=== PATIENT | female | born 1980 | race Caucasian/White ===

== ENCOUNTER 2016-07-23 21:33 | Emergency (ER) | payer SELFPAY ==
[2016-07-23 22:01] VITALS: BP 122/64
--- NOTE | 2016-07-23 22:24 | UC ---
Syncope/New Syncope HPI - HPI Summary HPI Summary: The patient comes in today for: 1. Syncope: Onset: 2 hours ago. Palliative/provocative: Pressure to the left face can make the problem worse. Quality: Ache Region: Left face. Severity: 07/04 Time: Constant. Associated symptoms: Event: She was getting a tattoo on her left lower leg in the sitting position. She was doing this for about 10-15 minutes. She told the forensic artist that she wanted to stand up and stretch her leg. She stood up. She felt like she stood up too quickly, and started to talk a friend and then she was on the floor. It was witnessed. She had no incontinence of stool or urine. She did not have any nausea prior to going down. She does not have any now. She does not have a headache. She had no tonic-clonic movements. She was out for about 5 seconds. She felt fine afterwards. She was told that she had hit her head on the corner of a wooden chair before she hit the floor. AFter she woke up, she laid on her side for 10-15 minutes. She felt OK at that time except for her face. She sat up and felt dizzy "felt like she was hungry." She laid back down and drank OJ. She sat up a second time after laying down for 10-15 minutes and she felt. She fainted before on her prior tattoo before this. The patient talked to her neurologist friend who said that she had to get a CT scan of the head and for facial bones. No nausea, no headache other than her facial contusion. No numbness or weakness. No photophobia. No confusion or disorientation. But, she is feeling tired. * - History Of Current Complaint Chief Complaint: UCDizziness Stated Complaint: SYNCOPE FELL ON FACE Time Seen by Provider: 07/23/16 22:12 Hx Obtained From: Patient, Family/Chief Chemist Hx Last Menstrual Period: control - Allergies/Home Medications Allergies/Adverse Reactions: Allergies Allergy/AdvReac Type Severity Reaction Status Date / Time Azithromycin [From Zithromax] Allergy Intermediate Hives Verified 01/16/15 19:24 Penicillins Allergy Intermediate Hives Verified 01/16/15 19:24 Adhesive Tape Allergy Hives Verified 07/23/16 22:02 Latex Allergy Hives Verified 07/23/16 22:02 Home Medications: Home Medications Ascorbic Acid [Vitamin C] 500 mg PO 07/23/16 [History] B-Complex Vitamins [Vitamin B Complex] 1 tab PO 07/23/16 [History] Cholecalciferol [Vitamin D] 1,000 unit PO 07/23/16 [History] Levonorgestrel-Ethinyl Estradi [Seasonique] 1 tab PO 07/23/16 [History] PMH/Surg Hx/FS Hx/Imm Hx Previously Healthy: No - Family planning/BCP Endocrine History Of: Denies: Diabetes, Thyroid Disease, Hyperthyroidism, Hypothyroidism, Dyslipidemia Cardiovascular History Of: Denies: Cardiac Disorders, Hypertension, Pacemaker/ICD, Myocardial Infarction , Congestive Heart Failure, Atrial Fibrillation, Deep Vein Thrombosis, Bleeding Disorders Respiratory History Of: Denies: COPD, Asthma, Bronchitis, Pneumonia, Pulmonary Embolism GI/ History Of: Reports: Gastroesophageal Reflux - No medications for it. Denies: Ulcer, Gastrointestinal Bleed, Gall Bladder Disease, Kidney Stones, Diverticulitis, Renal Disease, Urosepsis Neurological History Of: Denies: TIA, CVA, Dementia, Seizures, Migraine Psychological History Of: Reports: Anxiety, Depression - No medications for these. Denies: Bipolar Disorder, Schizophrenia, Post Traumatic Stress Disorder Cancer History Of: Denies: Lung Cancer, Colorectal Cancer, Breast Cancer, Prostate Cancer, Cervical Cancer Other History Of: Negative For: HIV, Hepatitis B, Hepatitis C, Anticoagulant Therapy - Surgical History Surgical History: Yes Surgery Procedure, Year, and Place: 2004 AND 2007 , 2010 [facility] - Family History Known Family History: Positive: Cardiac Disease, Hypertension - Social History Occupation: Employed Full-time Alcohol Use: Occasionally Substance Use Type: None Smoking Status (MU): Heavy Every Day Tobacco Smoker Household Exposure Type: Cigarettes Review of Systems Constitutional: Negative Skin: Negative Eyes: Negative ENT: Negative Respiratory: Negative Cardiovascular: Negative Gastrointestinal: Negative Genitourinary: Negative All Other Systems Reviewed And Are Negative: Yes Physical Exam Triage Information Reviewed: Yes Appearance: Well-Appearing, No Pain Distress - She is holding a cold pack on her left cheek area., Well-Nourished Vital Signs: Initial Vital Signs Temp 98.1 F 07/23/16 21:53 Pulse 85 07/23/16 21:53 Resp 18 07/23/16 21:53 BP 122/64 07/23/16 21:53 Pulse Ox 100 07/23/16 21:53 Eyes: Positive: Conjunctiva Clear. Negative: Discharge ENT: Positive: Hearing grossly normal. Negative: Pharyngeal erythema, TM bulging, TM dull, TM red, Tonsillar swelling, Tonsillar exudate Dental: Negative: Gross Decay/Caries @, Dental Fracture @ Neck: Positive: Supple, Nontender, No Lymphadenopathy. Negative: Nuchal Rigidity Respiratory: Positive: Lungs clear, No respiratory distress, No accessory muscle use. Negative: Crackles, Wheezing Cardiovascular: Positive: RRR, No Murmur Abdomen Description: Positive: Nontender, No Organomegaly, Soft. Negative: Distended, Guarding Musculoskeletal: Positive: Strength Intact, ROM Intact, Edema @ - She had edema of her left cheek. There is ecchymosis of around the eye and cheek. Neurological: Positive: Alert, Muscle Tone Normal Psychological: Positive: Normal Response To Family, Age Appropriate Behavior, Consolable Skin: Positive: Other - Swelling and tenderness to the left cheek area.. Negative: rashes, breakdown Diagnostics - Radiology No standard instances Xray Interpretation: No Acute Changes Radiology Interpretation Completed By: Radiologist Syncope Course/Dx - Differential Dx/Diagnosis Provider Diagnoses: Facial trauma-contusion. Vaso-vagal syncope secondary to pain from tattooing. Discharge - Discharge Plan Condition: Stable Disposition: HOME Patient Education Materials: RICE Therapy (ED), Head Injury (ED) Referrals: Adiel Blood MD [Primary Care Provider] - 1 Week (Please see your primary care provider early this coming week to see how well you are doing. If you have any worsening symptoms, please be seen in the ER.) Additional Instructions: Use [id number] medicine as needed for pain.
[2016-07-23] MEDS ORDERED: Naproxen TAB* 250 MG PO ONE (22:34)
--- NOTE | 2016-07-23 23:04 | RAD ---
Indication: LEFT facial swelling post fall. Unable to remove nose ring. Comparison: None. Technique: 5 view facial bone series. Report: The orbital margins and zygomatic arches appear intact. The nasal bones appear intact. No facial fracture identified. The paranasal sinuses are normally aerated. No gross soft tissue contour abnormality evident. IMPRESSION: No radiographic evidence for maxillofacial fracture.
== END 2016-07-23 23:21 | disposition home or self-care (01) ==
LOC: UCEAST 21:33
DX: S00.83XA Contusion of other part of head, initial encounter (principal); W18.00XA Striking against unspecified object with subsequent fall, initial encounter; Y93.9 Activity, unspecified; Y92.9 Unspecified place or not applicable; R55 Syncope and collapse; K21.9 Gastro-esophageal reflux disease without esophagitis; F41.8 Other specified anxiety disorders; Z88.0 Allergy status to penicillin; Z77.22 Contact with and (suspected) exposure to environmental tobacco smoke (acute) (chronic)
CPT/HCPCS: 70150; 99212; A9270-GY; G0463

== ENCOUNTER 2016-10-28 12:20 | Emergency (ER) | payer SELFPAY ==
[2016-10-28] MEDS ORDERED: Ibuprofen TAB* 600 MG PO ONE (14:07)
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
[2016-10-28 16:00] VITALS: BP 143/79
== END 2016-10-28 15:59 | disposition home or self-care (01) ==
LOC: ED 12:20
DX: S20.319A Abrasion of unspecified front wall of thorax, initial encounter (principal); V44.5XXA Car driver injured in collision with heavy transport vehicle or bus in traffic accident, initial encounter; Y93.89 Activity, other specified; Y92.89 Other specified places as the place of occurrence of the external cause; F17.210 Nicotine dependence, cigarettes, uncomplicated
CPT/HCPCS: 72125; 72128; 99282; A9270-GY

== ENCOUNTER 2017-07-07 08:58 | Day surgery (SDC) | payer OTHER ==
[~2017-07-07 08:58] MED LIST: Buffered Lidocaine 0.9% SYRIN* 5 ML/SYR SYRINGE INTRADERM ONE; Dexamethasone IV* 4 MG/ML 1 ML (4 MG) IV SLOW PU ONE; Lidocaine 2% PF * 5 ML VIAL ONE; Midazolam* 1 MG/ML 2 ML VIAL (2 MG) ONE; Propofol* 10 MG/ML 20 ML BTL IV PUSH ONE; Rocuronium* 10 MG/ML VIAL ONE; Sodium Citrate/Citric Acid* 15 ML UDC PO ONE; fentaNYL* 50 MCG/ML 2 ML VIAL (100 MCG VIAL) ONE
[2017-07-07] MEDS ORDERED: Buffered Lidocaine 0.9% SYRIN* 5 ML/SYR SYRINGE ONE (09:05)
[2017-07-07] MEDS ORDERED: Sodium Citrate/Citric Acid* 15 ML UDC ONE (09:05)
[2017-07-07] MEDS ORDERED: Dexamethasone IV* 4 MG/ML 1 ML (4 MG) ONE (09:05)
[2017-07-07 09:30] LABS: Hematocrit 44 % (35-47); Hemoglobin 15.5 g/dl (12.0-16.0); Mean Corpuscular HGB Conc 35 g/dl (31-36); Mean Corpuscular Hemoglobin 33 pg (27-31); Mean Corpuscular Volume 93 fL (80-97); Mean Platelet Volume 8.3 um3 (7.4-10.4); Platelet Count 199 10^3/ul (150-450); Red Blood Count 4.76 10^6/ul (4.0-5.4); Red Cell Distribution Width 12 % (10.5-15); White Blood Count 6.8 10^3/ul (3.5-10.8)
[2017-07-07] MEDS ORDERED: Bupivacaine 0.25% SDV* 30 ML ONE (09:59)
[2017-07-07] MEDS ORDERED: Levalbuterol 0.63MG/3ML NEB* UNIT OF USE INH ONE (10:02)
[2017-07-07] MEDS ORDERED: HYDROmorphone INJ* 1 MG/ML CARPUJECT SYRINGE IV PRN (10:08)
[2017-07-07] MEDS ORDERED: Ondansetron INJ* 2 MG/ML VIAL IV PRN (10:08)
[2017-07-07] MEDS ORDERED: fentaNYL* 50 MCG/ML 2 ML VIAL (100 MCG VIAL) IV PRN (10:08)
[2017-07-07] MEDS ORDERED: oxyCODONE/Acetamin 5/325 MG* TAB PO PRN (10:08)
[2017-07-07] MEDS ORDERED: Naloxone* 0.4 MG/ML 1 ML VIAL IV PRN (10:08)
[2017-07-07] MEDS ORDERED: fentaNYL* 50 MCG/ML 2 ML VIAL (100 MCG VIAL) ONE ×2 (10:27→11:35)
[2017-07-07] MEDS ORDERED: Ketorolac INJ* 30 MG/ML 1 ML VIAL ONE (10:34)
[2017-07-07] MEDS ORDERED: oxyCODONE/Acetamin 5/325 MG* TAB ONE (11:50)
[2017-07-07 12:52] VITALS: BP 108/63
--- NOTE | 2017-07-09 02:05 | OP ---
DATE OF OPERATION: 07/07/17 [facility] DATE OF : 84 SURGEON: Mimi Flowers MD ANESTHESIOLOGIST: Dr. Morelos ANESTHESIA: General endotracheal. PRE-OP DIAGNOSIS: Satisfied parity. POST-OP DIAGNOSIS: Satisfied parity. OPERATIVE PROCEDURE: Laparoscopic bilateral tubal ligation with Filshie clips. ESTIMATED BLOOD LOSS: Minimal. URINE OUTPUT: 100 cc IV FLUIDS: 700 cc lactated Ringer's. INDICATION: This patient is a 37-year-old 2, para 2 who presented to the office desiring permanent sterilization. She was extensively counseled regarding her options for sterilization and long-term reversible contraception and she desired to have a laparoscopic procedure. She was extensively counseled and consent was signed. FINDINGS: Normal appearing uterus, fallopian tubes, and ovaries. COMPLICATIONS: None. DESCRIPTION OF PROCEDURE: The risks, benefits, and alternatives were described to the patient, and informed consent was obtained. The patient was taken to the operating room with IV running where general anesthesia was induced and found to be adequate. The patient was prepped and draped in normal-sterile fashion in the low lithotomy position and Arie stirrups. A time-out was performed. The bladder was emptied. A bivalve speculum was placed in the vagina and a Hulka tenaculum was placed through the cervix into the uterus. The speculum was then removed. Attention was then turned to the abdomen. 0.25% Marcaine was then injected into the skin of the umbilicus as well as 2-cm above the pubic symphysis. A 5 mm skin incision was made with a scalpel in the umbilicus. An Ethicon Xcel blade with trocar was then inserted through the incision and into the peritoneal cavity without difficulty. The skin was elevated using penetrating towel clamps. Once the trocar was in the abdominal cavity, the abdomen was insufflated with carbon dioxide gas to a maximum pressure of 15 mmHg. Using the camera, the area below the trocar placement was carefully inspected and there was no evidence of trauma or bleeding. The patient was placed in Trendelenburg position. A second incision about 8 mm in length was placed 2 cm above the pubic symphysis in a transverse fashion. An 8- mm blunt trocar was also placed through this incision and into the abdominal cavity without difficulty. Using the Hulka tenaculum for manipulation, the uterus was elevated and well visualized. The structures appeared normal. Filshie clips were prepared. A Filshie clip was then placed on the patient's right fallopian tube in the mid isthmic portion without difficulty. The same was then performed on the patient's left side, again without difficulty and with excellent hemostasis. The case was then completed. The trocars were removed from the abdomen and the gas was allowed to escape. The skin was reapproximated using 4-0 Monocryl and a subcuticular stitch, and the incisions were then overlaid with Dermabond skin adhesive. The tenaculum was then removed from the cervix as well, and there was only light bleeding from the vagina at that time. The patient was returned to the supine position and allowed to awaken. The patient tolerated the procedure well. Sponge, lap, and needle counts were correct x2. [id number]/[facility] #: [id number] MTDD
== END 2017-07-07 13:11 | disposition home or self-care (01) ==
LOC: OR 08:58
PROVIDERS: ATTEND Obstetrics & Gynecology
DX: Z30.2 Encounter for sterilization (principal); Z68.31 Body mass index [BMI] 31.0-31.9, adult; R00.2 Palpitations; Z72.0 Tobacco use; M19.90 Unspecified osteoarthritis, unspecified site; F41.8 Other specified anxiety disorders; K21.9 Gastro-esophageal reflux disease without esophagitis
CPT/HCPCS: 36415; 81025; 85027; 86850; 86900; 86901; A9270-GY; C1776; J1100; J1885; J2250; J2704; J3010

== ENCOUNTER 2017-09-02 15:34 | Emergency (ER) | payer OTHER ==
--- OUTSIDE RECORDS SUMMARY | 2017-09-02 16:22 | XMS REPORT ---
:1980 External Reference #:[id number] Author Organization [facility] Address [address] [place] [address] Phone [phone] Care Team Providers Name Role Phone Adiel Blood MD Care Team Information Radiology Special Procedure Tech Unavailable Adiel Blood MD Primary Care Physician Unavailable Payers Type Date Identification Numbers Payment Provider Subscriber Medicaid Effective: Policy Number: [id number] [facility] Dominique M 2004 Maxim PayID: [id number] [address] [address] [place] [address] Problems Date Description Provider Status Onset: 03/08/2017 Major depressive disorder, single Adiel Blood M.D. Active episode, unspecified Onset: 03/08/2017 Anxiety state Adiel Blood M.D. Active Onset: 03/13/2012 Eruption Ronnie Khan M.D. Active Onset: 11/17/2011 Acute cystitis Adiel Blood M.D. Active Onset: 11/20/2009 Allergic rhinitis Ronnie Khan M.D. Active Family History Date Family Member(s) Problem(s) Comments Father TIA Mother Unremarkable Number of Children 2 First Son Unremarkable First Daughter Asthma First Daughter Depression Number of Siblings Siblings: 5 First Brother due to Heart Disease () - congenital Second Brother Unremarkable Third Brother Unremarkable First Sister Unremarkable Second Sister Unremarkable Paternal Grandfather due to Stroke () - 80's Paternal Grandmother due to Aneurysm () - brain 50 yo Maternal Grandfather Chronic Obstructive Pulmonary Disease (COPD) Maternal Grandfather Heart Disease Maternal Grandmother Hypertension Maternal Grandmother Hypercholesterolemia Maternal Grandmother Diabetes Mellitus, II Social History Type Date Description Comments Marital Status 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 No menses on Payton Allergies, Adverse Reactions, Alerts Date Description Reaction Status Severity Comments 03/26/2003 Zithromax active 09/05/2006 Penicillin active 07/25/2012 Latex active 02/26/2015 Adhesives active Medications Medication Date Status Form Strength Qnty SIG Indications Ordering Provider Tizanidine HCL 08/29/ Active Capsules 4mg 90caps 1 by Vance Vaz [facility] [place] mouth Mir, three [employer] times a day as needed spasm Meloxicam 08/29/ Active Tablets 15mg 90tabs 1 by Vance Vaz [facility] mouth Mir, every [employer] day Acetaminophen 08/29/ Active Tablets 500mg 120tab 1-2 by Vance Vaz [facility] s mouth Mir, every 12 [employer] hours as needed pain Paxil 03/08/ Active Tablets 20mg 30tabs 1 by Adiel Hampton 2017 mouth Breiman, every M.D. day Pantoprazole 10/31/ Active Tablets DR 40mg 30tabs 1 by Baljeet0 Adiel Hampton Sodium 2016 mouth Breiman, every M.D. day K21.9 Cetirizine HCL 06/15/2016 Active Tablets 10mg 30tabs 1 by mouth J30.89 Tiffany every day Kane, prn [employer] Fluticasone 06/15/2016 Active Suspension 50mcg/ 16units instill 2 J30.89 Tiffany Propionate Act sprays into Kane, each nostril [employer] once daily as needed Multi-Vitamin Active Tablets 1 po qd Unknown Vitamin D Active Tablets 1000Un 1 po qd Unknown it Ibuprofen Active Tablets 600mg 1 tab by Unknown mouth every 8 hours as needed pain. take with food Bactrim DS 05/08/2017 - Hx Tablets 800-16 14tabs 1 by mouth Adiel Hampton 08/29/2017 0mg twice a day Jared Blood Paxil 01/04/2017 - Hx Tablets 10mg 30tabs 1 by mouth Adiel Hampton 03/08/2017 every day Jared Blood Note For Work 11/08/2016 - Hx Can Return Adiel Hampton 01/04/2017 To Work No Caitie, Limitations M.D. 11/14/16 Work Excuse 11/08/2016 - Hx can return Adiel Hampton 01/04/2017 to work no Caitie limitations M.D. 11/14/16 Tramadol HCL 10/31/2016 - Hx Tablets 50mg 45tabs 1 by mouth Adiel Hampton 01/04/2017 every 6 Breiman, hours as M.D. needed Work Excuse 10/31/2016 - Hx dominique Adiel Hampton 11/07/2016 was in [facility]], cannot work M.D. at least this week and possibly a second week will reassess Pantoprazole 03/11/2015 - Hx Tablets DR 40mg 30tabs 1 by mouth K30 Adiel Hampton Sodium 10/31/2016 every day Jared Blood K21.9 Omeprazole 11/28/2013 - Hx Capsules DR 40mg 30caps 1 po qd 536.8 Tiffany 02/26/2015 LI Middleton Ciprofloxacin HCL 09/19/2013 - Hx Tablets 500mg 10tabs 1 po bid x 5 599.0 Candi 09/24/2013 days KRISTINA Perez Phenazopyridine 09/19/2013 - Hx Tablets 100mg 6tabs 1 po tid x 2 599.0 Candi HCL 09/21/2013 days KRISTINA Perez Fluconazole 09/19/2013 - Hx Tablets 150mg 1tabs 1 po x 1 599.0 Candi 09/20/2013 KRISTINA Perez Physical Therapy 01/05/2013 - Hx evaluate and 719.45 Tiffany 09/19/2013 treat low Kane, back and [employer] right hip pain Bupropion HCL XL 09/24/2012 - Hx Tablets ER 300mg 30tabs Take One F41.1 Tiffany 06/15/2016 24HR Tablet By Kane Mouth Every [employer] Day Chantix Starting 07/25/2012 - Hx Tablets 0.5mg 1pack use as 305.1 Candi Month Khris 09/19/2013 X 11 directed Brown, 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 & 1 mg X 42 Fluocinolone 07/14/2012 - Hx Cream 0.025 15gm apply to 782.9 Татьяна Acetonide 07/25/2012 % affected Mir, areas right [employer] arm daily x 2 weeks Bupropion HCL XL 03/28/2012 - Hx Tablets ER 150mg 30tabs 1 po qd 311 Tiffany 09/24/2012 24HR Kane, [employer] Physical Therapy 03/28/2012 - Hx evaluate and 719.45 Tiffany 07/14/2012 treat low Kane, back and [employer] right hip pain Pantoprazole 03/28/2012 - Hx Tablets DR 40mg 30tabs Take One 536.8 Tiffany Sodium 11/28/2013 Tablet By Kane, Mouth Every [employer] Day Ketoconazole 03/13/2012 - Hx Cream 2% 30gm apply to 782.1 Ronnie Muñiz 03/28/2012 rash qd to Erin, bid Jared Work Note 03/13/2012 - Hx no work 782.1 Ronnie Muñiz 03/28/201203/14 due Erin, to illness MWander Bactrim DS 01/12/2012 - Hx Tablets 800-1 20tabs 1 po bid 599.0 Fran Bryan 01/22/2012 60mg Jared Nguyen Cipro 11/17/2011 - Hx Tablets 250mg 10tabs 1 po bid Adiel Hampton 01/12/2012 Jared Blood Pyridium 11/17/2011 - Hx Tablets 200mg 10tabs use bid Adiel Hampton 01/12/2012 for pain Jared Blood Pyridium 09/12/2011 - Hx Tablets 100mg 15tabs 1-2 po tid Suzanna 09/16/2011 prn dysuria Eros Joyner Cortisporin Otic 08/31/2011 - Hx Solution 1units 2gtts tid Adiel Hampton 09/12/2011 x 4 days Jared Blood Payton 04/06/2011 - Hx Tablets 3-0.0 3packs take one Tiffany 06/15/2016 2mg tablet by Kane, mouth daily. [employer] Protonix 04/06/2011 - Hx Tablets DR 40mg 30tabs 1 po qd 536.8 Tiffany 08/09/2011 Kane, [employer] Nicoderm CQ 04/06/2011 - Hx Patches 24HR 21mg/ 14units apply one 305.1 [facility] 09/12/2011 24HR patch daily Kane, for up to 4 [employer] weeks Nicoderm CQ 04/06/2011 - Hx Patches 24HR 14mg/ 14units apply one q 305.1 [facility] 09/12/2011 24HR am, may use Kane, up to 6 [employer] weeks Nicoderm CQ 04/06/2011 - Hx Patches 24HR 7mg/2 14units apply 1 305.1 [facility] 09/12/2011 4HR daily for up Kane, to 4 weeks [employer] Citalopram 02/10/2011 - Hx Tablets 20mg 30tabs 1 po qd [facility] Hydrobromide 08/09/2011 Kane, [employer] Omeprazole 02/10/2011 - Hx Capsules DR 40mg 30caps 1 po qd [facility] 04/06/2011 Kane, [employer] Fexofenadine HCL 07/26/2010 - Hx Tablets 180mg 7tabs 1 po qd 477.8 Fran A. 08/02/2010 Jared Nguyen Ranitidine HCL 07/26/2010 - Hx Tablets 150mg 7tabs 1 po qd 477.8 Fran A. 08/02/2010 Jared Nguyen Prednisone 07/26/2010 - Hx Tablets 10mg 19tabs 4 po x 2 477.8 Fran A. 08/02/2010 days, then 3 Darlow, po x 2 days, M.D. then 2 po x 2 days,then 1 po x 1 day Chantix 06/23/2010 - Hx Tablets 0.5mg 1tabs 1 starter Tiffany 04/06/2011 X 11 pack for a Kane, & month,then [employer] 1 mg refill X maintenance packs Bactrim DS 11/20/2009 - Hx Tablets 800-1 10tabs 1 po bid x 5 Suzanna 11/07/2011 60mg days Eros Joyner Veramyst 11/20/2009 - Hx Suspension 27.5m Sample 2 sprays Ronnie TShay 09/12/2011 cg/Sp each nostril Midura, ray qd. Jared Nexium 07/31/2009 - Hx Capsules DR 40mg 30caps 1 po qd 536.8 Tiffany 02/10/2011 Kane, [employer] Lexapro 07/31/2009 - Hx Tablets 10mg 30tabs Take 1 F41.1 Tiffany 06/15/2016 Tablet By Kane, Mouth Once [employer] Daily Return To Work 04/13/2004 - Hx dominique was Tiffany 12/09/2005 seen by me Middleton, today for [employer] low back pain and may not return to work until further notice Clarinex 11/20/2003 - Hx 5mg 30units 1 qd Vladimir J. 12/09/2005 Jared Tanner Nasacort Aq 11/20/2003 - Hx 1units 2 sprays q Vladimir J. 12/09/2005 nostril qd Jared Tanner Multivitamin 11/10/2003 - Hx 100unit 1 qd Vladimir J. 12/09/2005 s Jared Tanner Lexapro 11/10/2003 - Hx 20mg 30units 1 po qd Vladimir J. 12/09/2005 Jared Tanner Differin Cream 11/10/2003 - Hx 15gm Appy QHS Vladimir J. 12/09/2005 Jared Tanner Return To Work 10/31/2003 - Hx dominique may Tiffany 12/09/2005 return to [place] work without [employer] restriction as of today. Trazodone 10/15/2003 - Hx 50mg 20units 1 po qhs prn Vladimir J. 12/09/2005 Jared Tanner Lexapro 10/13/2003 - Hx 10mg 30units 1 po qd Vladimir J. 11/10/2003 Jared Tanner Cleocin T 06/18/2003 - Hx Cream 1% 1Large Vladimir J. 12/09/2005 Jared Tanner Minocin 06/18/2003 - Hx 100mg 60units 1 bid for 2 Vladimir J. 12/09/2005 wks then 1 mariusz Tanner M.D. Cryselle 28 Day 03/26/2003 - Hx 1 PO qd Family 06/18/2003 [facility] Entex-LA (Without 03/26/2003 - Hx 20units 1 PO bid prn Tiffany Ppa) 06/18/2003 LI Middleton Vitamin B-12 - Hx Tablets 500mc 1 po qd Unknown 07/26/[address] Kim Wort - Hx Capsules 300mg 2 cap bid Unknown 07/31/2009 Paragard - Hx IUD T380a Unknown Intrauterine 04/06/2011 Copper Iron - Hx Tablets 325(6 60tabs 1 po bid Unknown 03/28/2012 5Fe) mg Vitamin B 12 - Hx Lozenges 250mc 2 po qd Unknown 03/28/2012 g Prilosec OTC - Hx Tablets DR 20mg 30tabs 1 po qd Unknown 03/28/2012 Seasonique - Hx Tablets 0.15- take per Unknown 01/04/2017 0.03& packet amp;0 directions .01mg Percocet - Hx Tablets 5-325 1-2 tabs by Unknown 10/31/2016 mg mouth q4-6hrs as needed dt Percocet - Hx Tablets 10-32 1 by mouth Unknown 11/07/2016 5mg four times daily Vital Signs Date Vital Result Comment 08/29/2017 BP Systolic 102 mmHg BP Diastolic 76 mmHg Heart Rate 82 /min Body Temperature 97.7 F Respiratory Rate 16 /min Height 65.5 inches 5'5.50" Weight 189.00 lb BMI (Body Mass Index) 31.0 kg/m2 05/08/2017 BP Systolic 112 mmHg BP Diastolic 82 mmHg Heart Rate 96 /min Body Temperature 98.4 F Height 65.5 inches 5'5.50" Weight 177.00 lb BMI (Body Mass Index) 29.0 kg/m2 03/08/2017 BP Systolic 100 mmHg BP Diastolic 68 mmHg Heart Rate 80 /min Body Temperature 97.7 F Height 65.5 inches 5'5.50" Weight 174.00 lb BMI (Body Mass Index) 28.5 kg/m2 01/04/2017 BP Systolic 114 mmHg BP Diastolic 60 mmHg Heart Rate 90 /min Body Temperature 97.9 F Respiratory Rate 16 /min Height 65.5 inches 5'5.50" Weight 172.00 lb BMI (Body Mass Index) 28.2 kg/m2 11/08/2016 BP Systolic 106 mmHg BP Diastolic 70 mmHg Heart Rate 96 /min Body Temperature 98.6 F Height 65.5 inches 5'5.50" Weight 167.38 lb BMI (Body Mass Index) 27.4 kg/m2 10/31/2016 BP Systolic 100 mmHg BP Diastolic 70 mmHg Heart Rate 78 /min Height 65.5 inches 5'5.50" Weight 170.38 lb BMI (Body Mass Index) 27.9 kg/m2 07/29/2016 BP Systolic 110 mmHg BP Diastolic 68 mmHg Heart Rate 80 /min Body Temperature 98.8 F Respiratory Rate 16 /min Height 65.5 inches 5'5.50" Weight 172.00 lb BMI (Body Mass Index) 28.2 kg/m2 06/15/2016 BP Systolic 118 mmHg BP Diastolic 70 mmHg Heart Rate 60 /min Body Temperature 97.7 F Respiratory Rate 16 /min Height 65.5 inches 5'5.50" Weight 174.38 lb BMI (Body Mass Index) 28.6 kg/m2 11/06/2015 BP Systolic 110 mmHg BP Diastolic 80 mmHg Heart Rate 80 /min Body Temperature 98.6 F Respiratory Rate 16 /min Height 65.5 inches 5'5.50" Weight 179.00 lb BMI (Body Mass Index) 29.3 kg/m2 03/11/2015 BP Systolic 100 mmHg BP Diastolic 70 mmHg Heart Rate 60 /min Body Temperature 98.5 F Respiratory Rate 18 /min Height 65.5 inches 5'5.50" Weight 177.00 lb BMI (Body Mass Index) 29.0 kg/m2 Right Visual Acuity Distance 20/40 W/O Left Visual Acuity Distance 20/25 02/26/2015 BP Systolic 112 mmHg BP Diastolic 64 mmHg Heart Rate 92 /min Body Temperature 98.9 F Height 65.25 inches 5'5.25" Weight 182.00 lb BMI (Body Mass Index) 30.1 kg/m2 11/28/2013 BP Systolic 124 mmHg BP Diastolic 70 mmHg Heart Rate 58 /min Body Temperature 98.0 F Respiratory Rate 18 /min Height 65.25 inches 5'5.25" Weight 180.00 lb BMI (Body Mass Index) 29.7 kg/m2 09/19/2013 BP Systolic 110 mmHg BP Diastolic 78 mmHg Heart Rate 68 /min Body Temperature 98.0 F Respiratory Rate 16 /min Height 65.25 inches 5'5.25" Weight 175.50 lb BMI (Body Mass Index) 29.0 kg/m2 09/24/2012 BP Systolic 100 mmHg BP Diastolic 70 mmHg Heart Rate 68 /min Body Temperature 99.0 F Respiratory Rate 16 /min Height 65.25 inches 5'5.25" Weight 168.00 lb BMI (Body Mass Index) 27.7 kg/m2 07/25/2012 BP Systolic 122 mmHg BP Diastolic 80 mmHg Heart Rate 72 /min Body Temperature 99.2 F Respiratory Rate 18 /min Height 65.25 inches 5'5.25" Weight 163.00 lb BMI (Body Mass Index) 26.9 kg/m2 07/14/2012 BP Systolic 110 mmHg BP Diastolic 70 mmHg Heart Rate 82 /min Body Temperature 99.6 F Respiratory Rate 18 /min Height 65.25 inches 5'5.25" Weight 163.00 lb BMI (Body Mass Index) 26.9 kg/m2 03/28/2012 BP Systolic 100 mmHg BP Diastolic 66 mmHg Heart Rate 90 /min Height 65.25 inches 5'5.25" Weight 158.00 lb BMI (Body Mass Index) 26.1 kg/m2 03/13/2012 BP Systolic 120 mmHg BP Diastolic 60 mmHg Heart Rate 68 /min Body Temperature 99.1 F Height 65.25 inches 5'5.25" Weight 155.00 lb BMI (Body Mass Index) 25.6 kg/m2 01/12/2012 BP Systolic 110 mmHg BP Diastolic 66 mmHg Heart Rate 90 /min Body Temperature 98.5 F Height 65.25 inches 5'5.25" Weight 151.00 lb BMI (Body Mass Index) 24.9 kg/m2 11/17/2011 BP Systolic 100 mmHg BP Diastolic 64 mmHg Heart Rate 66 /min Body Temperature 98.5 F Height 65.25 inches 5'5.25" Weight 146.00 lb BMI (Body Mass Index) 24.1 kg/m2 11/07/2011 BP Systolic 100 mmHg BP Diastolic 60 mmHg Heart Rate 66 /min Body Temperature 99.0 F Height 65.25 inches 5'5.25" Weight 146.00 lb BMI (Body Mass Index) 24.1 kg/m2 09/12/2011 BP Systolic 112 mmHg BP Diastolic 72 mmHg Heart Rate 76 /min Body Temperature 98.6 F Height 65.25 inches 5'5.25" Weight 141.00 lb BMI (Body Mass Index) 23.3 kg/m2 08/31/2011 BP Systolic 108 mmHg BP Diastolic 72 mmHg Heart Rate 78 /min Body Temperature 98.7 F Height 65.25 inches 5'5.25" Weight 143.00 lb BMI (Body Mass Index) 23.6 kg/m2 08/10/2011 BP Systolic 120 mmHg BP Diastolic 70 mmHg Heart Rate 72 /min Height 65.25 inches 5'5.25" Weight 145.00 lb BMI (Body Mass Index) 23.9 kg/m2 04/06/2011 BP Systolic 100 mmHg BP Diastolic 70 mmHg Heart Rate 64 /min Body Temperature 98.1 F Height 65.25 inches 5'5.25" Weight 141.00 lb BMI (Body Mass Index) 23.3 kg/m2 07/26/2010 BP Systolic 112 mmHg BP Diastolic 68 mmHg Heart Rate 72 /min Body Temperature 98.4 F Respiratory Rate 12 /min O2 % BldC Oximetry 99 % Height 65.25 inches 5'5.25" Weight 148.00 lb BMI (Body Mass Index) 24.4 kg/m2 06/23/2010 BP Systolic 110 mmHg BP Diastolic 60 mmHg Heart Rate 80 /min Body Temperature 98.6 F Height 65.25 inches 5'5.25" Weight 144.00 lb BMI (Body Mass Index) 23.8 kg/m2 05/19/2010 BP Systolic 90 mmHg BP Diastolic 64 mmHg Heart Rate 90 /min Body Temperature 98.5 F Height 65.25 inches 5'5.25" Weight 135.00 lb BMI (Body Mass Index) 22.3 kg/m2 02/15/2010 BP Systolic 90 mmHg BP Diastolic 70 mmHg Heart Rate 60 /min Body Temperature 98.8 F Height 65.25 inches 5'5.25" Weight 136.00 lb BMI (Body Mass Index) 22.5 kg/m2 11/20/2009 BP Systolic 90 mmHg BP Diastolic 60 mmHg Heart Rate 60 /min Body Temperature 97.3 F Height 65.25 inches 5'5.25" Weight 126.00 lb BMI (Body Mass Index) 20.8 kg/m2 09/03/2009 BP Systolic 102 mmHg BP Diastolic 62 mmHg Heart Rate 88 /min Body Temperature 99.1 F Weight 123.00 lb 07/31/2009 BP Systolic 102 mmHg BP Diastolic 60 mmHg Heart Rate 76 /min Body Temperature 98.7 F Respiratory Rate 16 /min 09/05/2006 BP Systolic 120 mmHg BP Diastolic 70 mmHg Heart Rate 68 /min Body Temperature 98.9 F Height 65.25 inches 5'5.25" Weight 125.00 lb BMI (Body Mass Index) 20.6 kg/m2 12/09/2005 BP Systolic 112 mmHg BP Diastolic 60 mmHg Heart Rate 80 /min Height 65.25 inches 5'5.25" Weight 135.00 lb BMI (Body Mass Index) 22.3 kg/m2 04/13/2004 BP Systolic 116 mmHg BP Diastolic 60 mmHg Heart Rate 104 /min Height 65.25 inches 5'5.25" Weight 154.00 lb BMI (Body Mass Index) 25.4 kg/m2 11/20/2003 BP Systolic 140 mmHg BP Diastolic 70 mmHg Heart Rate 80 /min Body Temperature 98.3 F Height 65.25 inches 5'5.25" Weight 145.00 lb BMI (Body Mass Index) 23.9 kg/m2 11/10/2003 BP Systolic 116 mmHg BP Diastolic 70 mmHg Heart Rate 80 /min Height 65.25 inches 5'5.25" Weight 150.00 lb BMI (Body Mass Index) 24.8 kg/m2 10/31/2003 BP Systolic 100 mmHg BP Diastolic 60 mmHg Heart Rate 80 /min Body Temperature 98.5 F Height 65.25 inches 5'5.25" 06/18/2003 BP Systolic 110 mmHg BP Diastolic 70 mmHg Heart Rate 88 /min Height 65.25 inches 5'5.25" Weight 144.00 lb BMI (Body Mass Index) 23.8 kg/m2 03/26/2003 BP Systolic 108 mmHg BP Diastolic 70 mmHg Heart Rate 96 /min Body Temperature 97.8 F Height 65.25 inches 5'5.25" Weight 141.00 lb BMI (Body Mass Index) 23.3 kg/m2 Results Test Date Test Result H/L Range Note CBC No Diff 07/07/2017 White Blood Count 6.8 10^3/uL 3.5-10.8 Red Blood Count 4.76 10^6/uL 4.0-5.4 Hemoglobin 15.5 g/dL 12.0-16.0 Hematocrit 44 % 35-47 Mean Corpuscular Volume 93 fL 80-97 Mean Corpuscular Hemoglobin 33 pg High 27-31 Mean Corpuscular HGB Conc 35 g/dL 31-36 Red Cell Distribution Width 12 % 10.5-15 Platelet Count 199 10^3/uL 150-450 Mean Platelet Volume 8.3 um3 7.4-10.4 Type & Screen 07/07/2017 Patient Blood Type O Negative Antibody Screen NEGATIVE Comprehensive Metabolic Prof 07/29/2016 Sodium 140 mEq/L 134-149 Potassium 4.3 mEq/L 3.6-5.5 Chloride 105 mEq/L 94-112 Carbon Dioxide 23 mEq/L 21-32 Glucose 87 mg/dL 70-105 BUN 13 mg/dL 6-26 Creatinine 0.8 mg/dL 0.6-1.4 BUN/Creat Ratio 16.3 CALC 8.0-36.0 Calcium 9.5 mg/dL 8.6-10.2 Total Protein 7.2 g/dL 6.4-8.3 Albumin 4.5 g/dL 3.8-5.5 Globulin 2.7 g/dL 2.0-4.8 A/G Ratio 1.7 CALC 0.6-2.3 Alk. Phosphatase 79 U/L 30-110 Alt (SGPT) 14 U/L 7-35 Ast (Sgot) 14 U/L 5-34 Total Bilirubin 0.5 mg/dL 0.2-1.3 GFR Non- >60 ml/min/1.73m^ >=60 GFR >60 ml/min/1.73m^ >=60 Laboratory test finding 07/29/2016 Sedimentation Rate 7mm Complete Blood Count 07/29/2016 WBC 8.1 x10^3/UL 3.6-9.6 RBC 4.48 x10^6/UL 3.90-5.70 HGB 14.8 g/dL 12.1-17.2 HCT 42 % 36-50 MCV 94.0 fL 82.2-97.4 MCH 33.1 pg 27.6-33.3 MCHC 35.2 g/dL 33.0-35.5 RDW 13.9 % High 11.6-13.7 PLT 212 x10^3/UL 150-400 MPV 8.1 fL 7.4-10.4 Gran # 5.4 x10^3/UL 1.5-7.2 Lymph# 2.5 x10^3/UL 0.7-4.9 [place]# 0.2 x10^3/UL 0.1-0.9 Gran % 66.2 % 42.2-75.2 Lymph % 31.2 % 20.5-51.1 [place]% 2.6 % 1.7-9.3 Laboratory test 07/29/2016 C-Reactive Protein, 4.4 mg/L 0.0-4.9 1 finding Quant Laboratory test 07/29/2016 TSH 1.06 mIU/L 0.50-6.00 finding Laboratory test 03/11/2015 Antinuclear Negative 2, 3 finding Antibodies, Ifa Babesia Microti AB 03/11/2015 Babesia microti IgM Negative Neg:<1:10 2, 4 Panel Babesia microti IgG Negative Neg:<1:10 2, 5 Laboratory test finding 03/11/2015 TSH 1.04 mIU/L 0.50-6.00 Free T3 3.03 pg/mL 2.00-4.90 Free T4 1.24 ng/dL 0.75-1.54 Comprehensive Metabolic Prof 03/11/2015 Sodium 137 mEq/L 134-149 Potassium 4.0 mEq/L 3.6-5.5 Chloride 101 mEq/L 94-112 Carbon Dioxide 25 mEq/L 21-32 Glucose 89 mg/dL 70-105 BUN 12 mg/dL 6-26 Creatinine 0.9 mg/dL 0.6-1.4 BUN/Creat Ratio 13.3 CALC 8.0-36.0 Calcium 9.0 mg/dL 8.6-10.2 Total Protein 7.5 g/dL 6.4-8.3 Albumin 4.6 g/dL 3.8-5.5 Globulin 2.9 g/dL 2.0-4.8 A/G Ratio 1.6 CALC 0.6-2.3 Alk. Phosphatase 75 U/L 30-110 Alt (SGPT) 63 U/L High 7-35 Ast (Sgot) 37 U/L High 5-34 Total Bilirubin 0.7 mg/dL 0.2-1.3 GFR Non- >60 ml/min/1.73m^ >=60 GFR >60 ml/min/1.73m^ >=60 Ehrlichiosis Panel 03/11/2015 E. chaffeensis (HME) IgG Negative Neg:<1 :64 2 Titer E. chaffeensis (HME) IgM Titer Negative Neg:<1:20 2, 6 Hge IgG Titer Negative Neg:<1:64 2, 7 Hge IgM Titer Negative Neg:<1:20 2, 8 Complete Blood Count 03/11/2015 WBC 9.3 x10^3/UL 3.6-9.6 RBC 4.56 x10^6/UL 3.90-5.70 HGB 15.3 g/dL 12.1-17.2 HCT 44 % 36-50 MCV 96.0 fL 82.2-97.4 MCH 33.3 pg 27.6-33.3 MCHC 34.9 g/dL 33.0-35.5 RDW 13.0 % 11.6-13.7 PLT 194 x10^3/UL 150-400 MPV 8.0 fL 7.4-10.4 Gran # 6.9 x10^3/UL 1.5-7.2 Lymph# 2.2 x10^3/UL 0.7-4.9 [place]# 0.2 x10^3/UL 0.1-0.9 Gran % 73.5 % 42.2-75.2 Lymph % 24.0 % 20.5-51.1 [place]% 2.5 % 1.7-9.3 Lipid Profile 03/11/2015 Cholesterol 231 mg/dL High 120-200 Triglycerides 89 mg/dL 30-200 HDL Cholesterol 54 mg/dL 30-85 LDL (Calculated) 159 CALC High 0-129 VLDL Cholesterol 18 mg/dL 0-50 HDL Risk Factor 4.3 CALC 0.0-4.4 Rheumatoid Arthritis Factor 02/26/2015 Ra Latex Turbid. 8.9 IU/mL 0.0- 13.9 9 ([facility]) Lyme, Western Blot, Serum 02/26/2015 IgG P93 Ab. Absent 9 IgG P66 Ab. Absent 9 IgG P58 Ab. Absent 9 IgG P45 Ab. Absent 9 IgG P41 Ab. Absent 9 IgG P39 Ab. Absent 9 IgG P30 Ab. Absent 9 IgG P28 Ab. Absent 9 IgG P23 Ab. Absent 9 IgG P18 Ab. Absent 9 Lyme IgG WB Interp. Negative 9, 10 IgM P41 Ab. Absent 9 IgM P39 Ab. Absent 9 IgM P23 Ab. Absent 9 Lyme IgM WB Interp. Negative 9, 11 Laboratory test 02/26/2015 Sed Rate ([facility]ma/CMC/Centrex) 6mm finding Laboratory test 11/28/2013 Free T3 2.60 pg/mL 2.00-4.90 finding Free T4 1.07 ng/dL 0.75-1.54 TSH 0.62 mIU/L 0.50-6.00 Laboratory test finding 09/19/2013 Urine Culture Klebsiella pneum <SEE 12 NOTE> Ua - Micro (Fma) 09/19/2013 Appearance YELLOW Color CLEAR Glucose, Urine (Fma/CMC/CTX) NEG Bilirubin NEG Ketones NEG SP Grav 1.020 Blood NEG PH 7.5 Protein NEG Urobil 0.2 Nitrite NEG Leukocytes ([facility]ma/CMC/[facility]rex) NEG Hyaline - /Lpf Granular - /Lpf WBC (Fma,Centrex) 5-8 RBC 3-5 Mucus (Fma/CBC/Centrex) - /Lpf Epith OCC /Lpf Bacteria +1 /Hpf Amorphous ([facility]ma/CMC/Centrex) - /Lpf Crystals, Fluid (Fma/CMC/CTX) - Z#Comments - Laboratory test finding 09/06/2012 HIV 1 2 AB Nonreactive Nonreactive 13 Laboratory test finding 09/03/2012 Hepatitis C Antibody Nonreactive Nonreactive Hepatitis B Noni AB 09/03/2012 Hepatitis B Surface Reactive Nonreactive Titer AB Hep B Surf AB Index 5.52 14 Laboratory test finding 09/03/2012 Hepatitis B Surface Nonreactive Nonreactive Antigen Ua - Non Micro (a) 07/25/2012 Appearance clear Color yellow Glucose - Bilirubin - Ketones - SP Grav 1.025 Blood - PH 5.5 Protein - Urobil 0.2 Nitrite - Leukocytes ([facility]/CMC/[facility]rex) - Comp Metabolic Panel 05/07/2012 Sodium 137 mmol/L 133-145 Potassium 3.8 mmol/L 3.5-5.0 Chloride 105 mmol/L 101-111 Co2 Carbon Dioxide 26.0 mmol/L 22-32 Anion Gap 6.0 mmol/L 2-11 Glucose 87 mg/dL 70-100 Blood Urea Nitrogen 10 mg/dL 6-24 Creatinine 0.90 mg/dL 0.50-1.40 BUN/Creatinine Ratio 11.1 8-20 Calcium 9.4 mg/dL 8.1-9.9 Total Protein 6.7 g/dL 6.2-8.1 Albumin 3.8 g/dL 3.6-5.4 Globulin 2.9 g/dL 2-4 Albumin/Globulin Ratio 1.3 1-3 Total Bilirubin 0.6 mg/dL 0.4-1.5 Alkaline Phosphatase 80 U/L 30-110 Alt 26 U/L 14-54 Ast 21 U/L 12-42 Egfr Non- 73.5 >60 Egfr 94.5 >60 15 Laboratory test finding 05/07/2012 Lipase 18 U/L Low 22-51 TSH (Thyroid Stimulating Horm) 1.13 miu/mL 0.34-5.60 C Reactive Protein < 0.5 mg/dL Less than 0.5 CBC Auto Diff 05/07/2012 White Blood Count 6.8 10^3/uL 4.8-10.8 Red Blood Count 4.40 10^6/uL 4.0-5.4 Hemoglobin 14.7 g/dL 12.0-16.0 Hematocrit 42 % 35-47 Mean Corpuscular Volume 95 fL 80-97 Mean Corpuscular Hemoglobin 33 pg High 27-31 Mean Corpuscular HGB Conc 35 g/dL 31-36 Red Cell Distribution Width 13 % 10.5-15 Platelet Count 153 10^3/uL 150-450 Mean Platelet Volume 8 um3 7.4-10.4 Abs Neutrophils 5.0 10^3/uL 1.5-7.7 Abs Lymphocytes 1.4 10^3/uL 1.0-4.8 Abs Monocytes 0.3 10^3/uL 0-0.8 Abs Eosinophils 0.1 10^3/uL 0-0.6 Abs Basophils 0 10^3/uL 0-0.2 Abs Nucleated RBC 0.01 10^3/uL Granulocyte % 73.0 % 38-83 Lymphocyte % 20.3 % Low 25-47 Monocyte % 4.9 % 1-9 Eosinophil % 1.4 % 0-6 Basophil % 0.4 % 0-2 Nucleated Red Blood Cells % 0.1 Laboratory test finding 05/07/2012 Serum Negative Negative 16 Laboratory test finding 05/07/2012 Inr 0.82 Low 0.87-0.97 17 Activated Partial Thrombo Time 29.8 sec 22.18-37.18 Ua - Micro (a) 01/12/2012 Appearance clear Color yellow Glucose neg Bilirubin neg Ketones neg SP Grav 1.025 Blood small spotting PH 7.0 Protein neg Urobil 0.2 Nitrite neg Leukocytes (Fma/CMC/Centrex) trace Hyaline - /Lpf Granular - /Lpf WBC (Fma,Centrex) 20-25 RBC 0-2 Mucus sm amt /Lpf Epith few /Lpf Bacteria trace /Hpf Amorphous - /Lpf Crystals, Fluid (Fma/CMC/CTX) - Urine (Fma) 01/12/2012 SP Grav 1.025 Urine, (Fma/CMC/CTX) NEG Urine Culture And Sensitivities 01/12/2012 Urine Culture (SEE NOTE) 18 Ua - Micro (a) 11/17/2011 Appearance CLEAR Color YELLOW Glucose NEG Bilirubin NEG Ketones NEG SP Grav 1.010 Blood TRACE-INTACT PH 6.5 Protein NEG Urobil 0.2 Nitrite NEG Leukocytes (Fma/CMC/Centrex) SMALL Hyaline - /Lpf Granular - /Lpf WBC (Fma,Centrex) 15-20 RBC 1-2 Mucus - /Lpf Epith FEW /Lpf Bacteria TRACE /Hpf Amorphous - /Lpf Crystals, Fluid (Fma/CMC/CTX) - Z#Comments - Laboratory test finding 11/17/2011 Urine Culture Staphylococcus s <SEE 19 NOTE> Ua - Micro (a) 09/12/2011 Appearance see comments 20 WBC (Fma,Centrex) 15-20 RBC 3-5 Mucus - /Lpf Epith rare /Lpf Bacteria 2+ /Hpf Amorphous - /Lpf Crystals, Fluid (Fma/CMC/CTX) - Z#Comments - Ua - Micro (a) 05/19/2010 Appearance CLEAR Color YELLOW Glucose NEG Bilirubin NEG Ketones NEG SP Grav 1.025 Blood NEG PH 6.0 Protein NEG Urobil 0.2 Nitrite NEG Leukocytes (Fma/CMC/Centrex) NEG Hyaline - /Lpf Granular - /Lpf WBC (Fma,Centrex) 1-2 RBC 0-1 Mucus - /Lpf Epith FEW /Lpf Bacteria TRACE /Hpf Amorphous - /Lpf Crystals, Fluid (Fma/CMC/CTX) - Z#Comments - Laboratory test finding 05/19/2010 Urine Culture (Fma/CMC) NEGATIVE Laboratory test finding 02/15/2010 B12 821 pg/mL 230-1050 Comprehensive Metabolic Prof 02/15/2010 Albumin 4.5 g/dL 3.8-5.5 Alk. Phos. 58 U/L 30-110 Alt (SGPT) 13 U/L 7-35 Ast (Sgot) 16 U/L 5-34 BUN 13 mg/dL 6-26 Calcium 9.0 mg/dL 8.6-10.2 Chloride 107 mEq/L 94-112 Creatinine 0.8 mg/dL 0.6-1.4 Carbon Dioxide 22 mEq/L 21-32 Glucose 82 mg/dL 70-105 Sodium 140 mEq/L 134-149 Total Bilirubin 0.4 mg/dL 0.2-1.3 Total Protein 7.1 g/dL 6.3-8.1 Potassium 3.9 mEq/L 3.6-5.5 Globulin 2.6 g/dL 2.0-4.8 A/G Ratio 1.7 Calc 0.6-2.2 BUN/Creat Ratio 15.8 Calc 8.0-36.0 Laboratory test finding 02/15/2010 Free T3 2.25 pg/mL 2.00-4.90 Free T4 1.09 ng/dL 0.75-1.54 TSH 0.80 mIU/L 0.50-6.00 CBC (a) 02/15/2010 WBC 6.9 3.6-9.6 RBC 4.18 3.90-5.70 Hemoglobin (Fma/CMC/CTX) 13.4 g/dL 12.1 - 17.2 Hematocrit (Fma/CMC/CTX) 39.5 % 36.1 - 50.3 Platelets 154 10^3/ul 150-400 Lymph% 33.9 20.5-51.1 Mixed% 6.7 Neutrophils % 59.4 Mean Corpuscular Vol 94.5 82.2-97.4 Mean Corpuscular Hemoglobin 32.1 27.6-33.3 Mean Corpuscular Hemo Concen 33.9 33.0-36.0 RDW 13.0 11.6-13.7 Mean Platelet Volume 11.3 High 7.4-10.4 Laboratory test finding 02/15/2010 Vitamin D, 25 Oh 48.3 ng/mL 32.0- 100.0 21, 22 Ferritin 14.2 ng/ml 10.0-291.0 21 Laboratory test finding 12/09/2005 TSH (a/CMC/Centrex) 0.91 uIU/ml 0.5- 6.0 Free T4 (Fma/CMC/Centrex) 1.17 ng/dL 0.75-1.54 Free T3 (Fma,CX) 2.94 pg/mL 2.0-4.9 CBC ([facility]) (Fma) 12/09/2005 WBC 7.2 3.6-9.6 Lymphocytes 36.8 % 20.5 - 51.1 Monocytes 2.4 % 1.7-9.3 Granulocytes 60.8 % 42.2 - 75.2 Lymphocytes 2.6 10^3/uL 0.7 - 4.9 Monocytes 0.2 10^3/uL 0.1 - 0.9 Granulocytes 4.4 10^3/uL 1.5 - 7.2 RBC 4.34 3.90-5.70 Hemoglobin (Fma/CMC/CTX) 14.1 g/dL 12.1 - 17.2 Hematocrit (Fma/CMC/CTX) 40.3 % 36.1 - 50.3 Mean Corpuscular Vol 92.8 82.2-97.4 Mean Corpuscular Hemaglobin 32.5 27.6-33.3 Mean Corpuscular Hemo Concen 35.0 33.0-36.0 RDW 11.6 11.6-13.7 Platelets 202. 10^3/ul 150-400 Mean Platelet Volume 8.7 7.4-10.4 Throat-Beta Strept 12/02/2005 Throat-Beta Strep NGNBS 23 Culture Laboratory test finding 02/13/2004 Urine C&S NO GROWTH DAY 2 Final (CMC/Centrex) 1 1SST 2 2 SSTS 3 Negative <1:80 Borderline 1:80 Positive >1:80 4 This test was performed by: [facility] [address] [place] [address] The reference interval for this patient's result is: Negative <1:20 Equivocal 1:20 Positive >1:20 Test developed and characteristics determined by [facility]. 5 This test was performed by: [facility] [address], [place] The reference interval for this patient's result is: Negative <1:16 Equivocal 1:16 Positive >1:16 Test developed and characteristics determined by [facility]. This test was developed and its performance characteristics determined by [employer]. It has not been cleared or approved by the U.S. Food and Drug Administration. The FDA has determined that such clearance or approval is not necessary. This test is used for clinical purposes. It should not be regarded as investigational or research. 6 IgG titers if 1:64 or greater indicate exposure or acute and convalescent samples showing a four-fold increase, and/or the presence of IgM indicate recent or current infection. 7 HGE IgG levels are detectable 7 to 10 days post infection and persist approximately one year. 8 Due to a reagent backorder, this test was performed using a different assay. The reference interval for this alternate assay is: Negative <1:64 Positive 1:64 or greater IgM levels usually rise 3 to 5 days post infection and fall to normal levels in approximately 30 to 60 days. 9 1SST 10 Positive: 5 of the following Borrelia-specific bands: 18,23,28,30,39,41,45,58, 66, and 93. Negative: No bands or banding patterns which do not meet positive criteria. 11 Note: An equivocal or positive EIA result followed by a negative Western Blot result is considered NEGATIVE. An equivocal or positive EIA result followed by a positive Western Blot is considered POSITIVE by the CDC. Positive: 2 of the following bands: 23,39 or 41 Negative: No bands or banding patterns which do not meet positive criteria. Criteria for positivity are those recommended by CDC/ASTPHLD. p23=Osp C, c72=gpitftufd Note: Sera from individuals with the following may cross react in the Lyme Western Blot assays: other spirochetal diseases (periodontal disease, leptospirosis, relapsing fever, yaws, and pinta); connective autoimmune (Rheumatoid Arthritis and Systemic Lupus Erythematosus and also individuals with Antinuclear Antibody); other infections ([place]ot Spotted Fever; Neal-Nichols Virus, and Cytomegalovirus). 12 Klebsiella pneumoniae >100,000 col/ml URINE CULTURE organism 1 Klebsiella pneumoniae >100,000 col/ml Amikacin <=2 Susceptible Amoxicillin/CA <=2 Susceptible Ampicillin 16 Resistant Aztreonam <=1 Susceptible Cefazolin <=4 Susceptible Cefoxitin <=4 Susceptible Ciprofloxacin <=0.25 Susceptible Ertapenem <=0.5 Susceptible Gentamicin <=1 Susceptible Imipenem <=0.25 Susceptible Levofloxacin <=0.12 Susceptible Nitrofurantoin 64 Intermediate Piperacillin/tazobactam <=4 Susceptible Trimethoprim/Sulfa <=20 Susceptible 13 It is recognized that currently available assays for the detection of antibodies to HIV-1 and/or HIV-2 may not detect all infected individuals. HIV antibodies may be undetectable in some stages of the infection and in some clinical conditions. The performance of this assay has not been established for populations of infants or children. Assayed by Chemiluminescence Microparticle Immunoassay on the Siemens Advia Centaur CP. Values obtained with different methods or kits cannot be used interchangeably.The diagnostic specificity of the ADVIA Centaur 1/O/2 Enhanced assay in the low risk population was 99.90% (6052/6058) with a 95% confidence interval of 99.78 to 99.96%. 14 The World Health Organization (WHO) Hepatitis B Immunoglobulin 1st International Reference Preparation (1976): The accepted criteria for immunity to HBV is anti-HBs activity greater than or equal to 10 mIU/mL. An Index Value of 1.00 is equivalent to 10 mIU/mL. Samples with an Index Value of 1.00 or greater are considered reactive (protective) in accordance with the CDC guidelines. 15 Because ethnic data is not always readily available, this report includes an eGFR for both -Americans and non- Americans. The National Kidney Disease Education Program (NKDEP) does not endorse the use of the MDRD equation for patients that are not between the ages of 18 and 70, are , have extremes of body size, muscle mass, or nutritional status, or are non- or non-. According to the National Kidney Foundation, irrespective of diagnosis, the stage of the disease is based on the level of kidney function: Stage Description GFR(mL/min/1.73 m(2)) 1 Kidney damage with normal or decreased GFR 90 2 Kidney damage with mild decrease in GFR 60-89 3 Moderate decrease in GFR 30-59 4 Severe decrease in GFR 15-29 5 Kidney failure <15 (or dialysis) 16 This test detects intact HCG only and is indicated for the early detection of . 17 Please note the change in INR reference range effective 12. The INR(International Normalized Ratio) was adopted by the World Health Organization (WHO) in 1982 as a standardized system of reporting PT (Prothrombin Time). The Centers for Disease Control (CDC) states that reporting of PT results in INR only is the preferred method. Recommended INR for Patients on Oral Anticoagulants Prophylaxis 2.0 - 3.0 Treatment of thrombosis 2.0 - 3.0 Prevention of embolism 2.0 - 3.0 Prevention of embolism from prosthetic heart valves 2.5 - 3.5 18 RUN DATE: 01/14/12 [facility] LAB LIVE PAGE 1 RUN TIME: [address] [place] [id number] Specimen Inquiry Name: DOMINIQUE AHMADI : [address]: Wendy Miles,Fran Bryan Acct: [id number] Unit: [id number] AGE: 31 Location: [facility] Re01/12/12 SEX: F Status: REG REF SPEC: [id number] CHARANJIT: 01/12/[address]: Fran Nguyen Md REQ: [id number] RECD: 01/12/12 STATUS: COMP _ SOURCE: URINE SPDESC: ORDERED: Urine Culture QUERIES: Medent Number [id number] Urine Source: Random Procedure Result Verified Site Urine Culture Final 01/14/12- 0849 ML Organism 1 STAPHYLOCOCCUS SAPROPHYTICUS [place] Count >100,000 (Many) CFU/ML Routine testing of urine isolates of S. saprophyticus is not advised, because infections respond to concentrations achieved in urine of antimicrobial agents commonly used to treat acute, uncomplicated urinary tract infections (e.g. nitrofurantoin, trimethoprim+/- sulfamethoxazole, or a fluoroquinolone). NCC March 2001 END OF REPORT * ML=Testing performed at Main Lab DEPARTMENT OF PATHOLOGY, [address] [place] [address] Kamari Rashid M.D. Director [facility] Permit #[id number] Staphylococcus saprophyticus >100,000 col/ml URINE CULTURE organism 1 Staphylococcus saprophyticus >100,000 col/ml Quinupristin/Dalfopristin 0.5 Susceptible Moxifloxacin <=0.25 Susceptible Clindamycin <=0.25 Susceptible Erythromycin >=8 Resistant Gentamicin <=0.5 Susceptible Levofloxacin 0.5 Susceptible Nitrofurantoin <=16 Susceptible Oxacillin 2 Susceptible Penicillin-G 0.25 Resistant Tetracycline <=1 Susceptible Trimethoprim/Sulfa <=10 Susceptible Vancomycin 1 Susceptible 20 chromogenic interference 21 1 SST 22 Recent studies consider the lower limit of 32.0 ng/mL to be a threshold for optimal health. Osvaldo BW. J Nutr. 2005 Apr;135(2):317-22. 23 NEGATIVE FOR GROUP A STREP Procedures Date CPT Code Description Status 03/11/2015 20665 Vision Test- screening test of visual acuity, Completed quantitative, bila 07/26/2010 07453 Pulse Oximetry Completed Encounters Type Date Location Provider CPT E/M Dx Office Visit 05/08/2017 2:20p Main Office Adiel Blood M.D. 53711 F41.9 F32.9 H60.12 Office Visit 03/08/2017 1:40p Main Office Adiel Blood M.D. 78610 F41.9 F32.9 Office Visit 01/04/2017 6:00p Main Office Adiel Blood M.D. 18498 F41.9 F32.9 Office Visit 07/29/2016 11:10a Main Office Adiel Blood M.D. 60068 R55 F41.1 M25.512 Office Visit 06/15/2016 2:15p Main Office LI Lira 82047 J30.89 Office Visit 11/06/2015 4:30p Main Office LI Lira 26528 K21.9 R10.11 Office Visit 03/11/2015 9:15a Main Office LI Lira 21184 Z00.00 K30 M25.521 E78.4 F41.1 Office Visit 02/26/2015 10:00a Main Office LI Brandt 72261 M79.645 M79.644 Office Visit 11/28/2013 11:00a [facility] Office LI Lira 73947 783.1 536.8 Office Visit 09/19/2013 9:45a [place] [address] 599.0 Office Visit 09/24/2012 7:15p Main Office Tiffany Middleton, [facility] 36238 311 Office Visit 07/25/2012 1:15p [facility] Office Candi Perez, KRISTINA 20951 V70.3 311 536.8 305.1 Office Visit 07/14/2012 10:45a Northeast Office Татьяна Hester, [facility] 72907 782.9 Office Visit 03/28/2012 9:00a Main Office Tiffany Middleton, [facility] 67804 311 536.8 719.45 Office Visit 03/13/2012 12:20p Main Office Ronnie Khan M.D. 05311 782.1 Office Visit 01/12/2012 4:40p Main Office Fran Nguyen M.D. 87872 599.0 Office Visit 11/17/2011 11:10a Main Office Adiel Blood M.D. 97973 595.0 Office Visit 09/12/2011 9:45a Main Office Nilotn Dutton-Teri 16460 595.0 Office Visit 08/31/2011 1:40p Main Office Adiel Blood M.D. 76157 380.4 Office Visit 08/10/2011 2:30p Main Office Nilton Dutton-Teri 36383 782.9 Office Visit 04/06/2011 9:45a Northeast Office Tiffany Bendermaagli [facility] 21466 311 536.8 305.1 Office Visit 07/26/2010 11:10a [facility] Office Fran Nguyen M.D. 12949 477.8 Office Visit 06/23/2010 3:00p [facility] Office Tiffany Bendermagali [facility] 34028 553.1 Office Visit 05/19/2010 4:15p Main Office Nilton Dutton-Teri 75313 788.41 Office Visit 02/15/2010 3:00p Main Office Tiffanyfredrick BenderKane, [facility] 81037 780.79 300.00 536.8 Office Visit 11/20/2009 9:10a Main Office Ronnie Khan M.D. 39225 461.9 477.9 Office Visit 09/03/2009 2:00p [facility] Office Tiffany Middleton [facility] 89161 536.8 300.00 Office Visit 07/31/2009 11:30a Main Office Tiffany Middleton [facility] 13886 536.8 300.00 Office Visit 09/05/2006 9:00a Main Office [place] 31621 300.00 311 Office Visit 12/09/2005 4:20p Main Office Vladimir Tanner M.D. 94433 785.1 Office Visit 04/13/2004 1:00p Main Office Tiffany Middleton [facility] 28461 724.2 Office Visit 11/20/2003 2:20p Main Office Vladimir Tanner M.D. 58602 477.9 Office Visit 11/10/2003 4:20p Main Office Vladimir Tanner M.D. 59511 706.1 300.00 300.01 Office Visit 10/31/2003 4:00p Main Office Tiffany Middleton [facility] 85785 724.2 Office Visit 10/13/2003 2:40p Main Office Vladimir Tanner M.D. 41059 311 300.01 Office Visit 06/18/2003 8:40a Main Office Vladimir Tanner M.D. 65676 706.1 Office Visit 03/26/2003 9:15a Main Office EM LiraP 52367 465.9 Plan of Care Future Appointment(s):10/03/2017 6:00 pm - LI Brandt at Main Aixvlj0408/29/2017 - EM BrandtPM54.6 Pain in thoracic spineNew Medication:Tizanidine HCL 4 mgMeloxicam 15 mgAcetaminophen 500 mgComments: meloxicam INSTEAD of motrinTylenol is ok for additional pain needs-- 500-1000 mg at a time massage ?---school of massage?TERRY Kyle, topical analgesic -- arnica, bengay, biofreezetrigger point cnakmpbmK88.0 Anesthesia of skinAllComments:~B_~U_Medication Management~b_~u_ Patient Understands medications he 's taking? Yes No Are there Barriers to Adherence? Yes No Has the patient been asked about herbal supplements and therapies, and OTC meds? Yes No
--- OUTSIDE RECORDS SUMMARY | 2017-09-02 16:23 | XMS REPORT ---
:1980 External Reference #:[id number] Author Organization [facility] Address [address] [place] [address] Phone [phone] Care Team Providers Name Role Phone Jaswinder Gómez M.D. 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 Payers Type Date Identification Numbers Payment Provider Subscriber Commercial Policy Number: [id number] [facility] Dominique Hoskins PayID: [id number] [address] [address] [place] [address] Medigap Part B Policy Number: [id number] Medicaid [place] Dominique Cejaaury PayID: [id number] [address] [place] [address] Problems Description No Active Problems Family History Date Family Member(s) Problem(s) Comments Father Hypertension Father TIA Mother A&W First Son A&W First Daughter A&W Paternal Grandfather Stroke Paternal Grandfather due to Heart Disease () Paternal Grandmother due to Aneurysm () Maternal Grandfather Mouth Cancer Maternal Grandfather COPD Maternal Grandfather Heart Disease Maternal Grandmother Diabetes, Type 2 Maternal Grandmother Hypercholesterolemia Maternal Grandmother Hypertension Maternal Grandmother Pacemaker Social History Type Date Description Comments Education Highest level of education completed is an associate degree Marital Status Patient is single Living Situation Lives with son and daughter 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 Cigarette Use Regularly smokes cigarettes Alcohol Currently consumes alcohol Smoking Patient is a current smoker, smokes every day Drug Use Denies drug use Daily Caffeine Drinks on average 3 cups of coffee a day Exercise Type/Frequency Current Exercises regularly Seat Belt/Car Seat Always uses a seat belt Currently Active The patient is currently sexually active Contraceptive Methods Current methods of control used include tubal ligation STD's Has high risk HPV Allergies, Adverse Reactions, Alerts Date Description Reaction Status Severity Comments 03/28/2006 Penicillin active 03/28/2006 Zithromax active 01/21/2013 Iodine active 08/15/2016 Latex active 06/14/2017 Adhesives Contact dermatitis active Medications Medication Date Status Form Strength Qnty SIG Indications Ordering Provider Ibuprofen 06/14/ Active Tablets 600mg 30tab take one tab Phaelon 2018 s by mouth every MD Kristie 6 hours as needed for pain Seasonique 05/09/ Active Tablets 0.15-0.03 91tab take 1 tablet Phaelon 2018 &0.01 s by mouth daily MD Kristie mg Multivitamin / Active Tablets 1 po qd Unknown Adult 0000 Zyrtec Allergy / Active Tablets 10mg 1 by mouth Unknown 0000 every day Vitamin D3 / Active Capsules 1000Unit 1 po bid Unknown 0000 Paxil / Active Tablets 20mg 1 by mouth Unknown 0000 every day Pantoprazole / Active Tablets 40mg take 1 tablet Unknown Sodium 0000 DR by mouth twice a day prn Apple Cider / Active Capsules 188mg 1 po qd Unknown Vinegar 0000 Oxycodone-Acet 06/14/ Hx Tablets 5-325mg 10tab take 1 tab by Phaelon aminophen 2018 - s mouth q4-6 MD Kristie 07/14/ hours as 2018 needed for pain Ovral 28 Day 10/12/ Hx Tablets 0.05mg;0. 30tab 1 PO qd Jaswinder Bryan 2006 - 5 mg s Dalia, 01/21/ M.Ely 2012 Ortho-Cyclen 07/11/ Hx Tablets 0.035mg;0 3cycl 1 po qd. take 2005 - .25 mg es continuously,s Mary Jane, 03/28/ kipping [facility] 2006 placebo pills, for medical indication Lo/Ovral 21 04/15/ Hx Tablets 0.03mg;0. 2pack 1 po qd--no 2005 - 3 mg s pill free Mary Jane, 03/28/ interval CN2006 for medical reasons, take continuously for 6 packs (18 weeks) Micronor 02/28/ Hx Tablets 0.35mg dispense 1 Blaire 2004 - package Song, 04/15/ CN 2005 take one tablet daily ALL Purpose 10/27/ Hx Ointment 1unit apply to Candace Zeus 2004 - s affected area Gill, Ointment after C.N.M. 2012 q 4-6 hours Ambien 10/19/ Hx Tablets 10mg 30tab 1 po qhs prn Cox 2004 - s sleep Nugent 03/28/ , CNM 2006 Vestura / Hx Tablets 3-0.02mg 84tab 1 po qd Unknown 0000 - s 2017 Bupropion HCL / Hx Tablets 150mg Unknown XL 0000 - ER 24HR 2016 Escitalopram / Hx Tablets 10mg Unknown Oxalate 0000 - 2016 Garcinia / Hx Tablets 500-200mg Unknown Cambogia 0000 - -mcg 2016 Medications Administered in Office Medication Date Status Form Strength Qnty SIG Indications Ordering Provider Injection Rho Administered Injection Alexandr Dumont) Immune Roberto Martin M.D. Human, One Dose Package Injection Rho Administered Injection Tim Dumont) Immune Velma Wells M.D. Globulin, Human, One Dose Package Vital Signs Date Vital Result Comment 08/16/2017 BP Systolic 118 mmHg BP Diastolic 68 mmHg Height 65.5 inches 5'5.50" Weight 189.00 lb BMI (Body Mass Index) 31.0 kg/m2 Last Menstrual Period [id number] 2 Parity 2 07/14/2017 BP Systolic 110 mmHg BP Diastolic 74 mmHg Body Temperature 98.1 F Height 65.5 inches 5'5.50" Weight 189.00 lb BMI (Body Mass Index) 31.0 kg/m2 2 Parity 2 06/14/2017 BP Systolic 118 mmHg BP Diastolic 74 mmHg Body Temperature 97.5 F Heart Rate 88 /min Respiratory Rate 16 /min Height 65.5 inches 5'5.50" Weight 184.00 lb BMI (Body Mass Index) 30.2 kg/m2 2 Parity 2 08/15/2016 BP Systolic 128 mmHg BP Diastolic 84 mmHg Height 65.5 inches 5'5.50" Weight 172.00 lb BMI (Body Mass Index) 28.2 kg/m2 2 Parity 2 01/21/2013 BP Systolic 104 mmHg BP Diastolic 70 mmHg Height 64.5 inches 5'4.50" Weight 171.00 lb BMI (Body Mass Index) 28.9 kg/m2 04/14/2006 BP Systolic 128 mmHg BP Diastolic 74 mmHg Height 65.5 inches 5'5.50" Weight 134.00 lb BMI (Body Mass Index) 22.0 kg/m2 Last Menstrual Period [id number] 03/28/2006 BP Systolic 122 mmHg BP Diastolic 70 mmHg Height 65.5 inches 5'5.50" Weight 136.00 lb BMI (Body Mass Index) 22.3 kg/m2 Last Menstrual Period [id number] 05/31/2005 BP Systolic 130 mmHg BP Diastolic 62 mmHg Height 64.25 inches 5'4.25" Weight 134.00 lb BMI (Body Mass Index) 22.8 kg/m2 Last Menstrual Period 0 Results Test Date Test Result H/L Range Note CBC With No Diff 07/07/2017 White Blood Count 6.8 10^3/uL 3.5-10.8 Red Blood Count 4.76 10^6/uL 4.0-5.4 Hemoglobin 15.5 g/dL 12.0-16.0 Hematocrit 44 % 35-47 Mean Corpuscular Volume 93 fL 80-97 Mean Corpuscular Hemoglobin 33 pg High 27-31 Mean Corpuscular HGB Conc 35 g/dL 31-36 Red Cell Distribution Width 12 % 10.5-15 Platelet Count 199 10^3/uL 150-450 Mean Platelet Volume 8.3 um3 7.4-10.4 Type And Screen 07/07/2017 Patient Blood Type O Negative Antibody Screen NEGATIVE Laboratory test 06/01/2005 Cytology Run: 06/06/05 09 1 finding <SEE NOTE> Laboratory test 09/22/2004 Genital For GRP B [POSITIVE FOR GR 2 finding Strep Only <SEE NOTE> Urine Culture 03/01/2004 Urine Culture NG 3 Sensitivi Sensitivi CBC With Electronic 05/09/2002 Platelet Count 197 CUMM 150-450 Diff White Blood Count 6.5 CUMM 4.8-10.8 Abs Basophils 0 0-0.2 Abs Eosinophils 0.1 0-0.6 Abs Grans 4.2 1.5-7.7 Abs Lymphs 1.8 1.0-4.8 Abs Mononuclear 0.4 0-0.8 Hematocrit 41 % 35-47 Hemoglobin 13.8 g/dL 12.0-16.0 Eosinophil % 1.9 % 0-6 Mean Corpuscular HGB Cone 34 g/dL 32-36 Mean Corpuscular Hemoglob 31 pg 27-31 Mean Corpuscular Volume 92 um3 79-97 Mean Platelet Volume 8.6 um3 7.4-10.4 Red Cell Count 4.51 CUMM 4.2-5.4 Redcell Distribution WDTH 12 % 10.5-15 Gran % 64.8 % 38-83 Lymph % 27.2 % 20-45 Mononuclear % 6.0 % 1-9 Lipid And Glucose 05/09/2002 Glucose 83 mg/dL 70-105 Lipid Profile 05/09/2002 Cholesterol/HDL Ratio 3.78 AVERAGE 1-4.44 (Trig/Chol/HDL) Cholesterol 174 mg/dL Less Than 200 4 Triglyceride 55 mg/dL 40-200 High Density Lipoprotein 46 mg/dL 40-60 Low Density Lipoprotein 117 mg/dL High Less Than 100 5 1 Run: 06/06/05 0938 [facility] Specimen Inquiry Run User: INTERFACE -- Name: DOMINIQUE HOSKINS Age/Sex: 25/F Location: [facility]#: [id number] Unit#: [id number] Status: REG REF Room/Bed: Re06/01/05 Disch: Att Dr: Shandra Hinton RN. DEBURRER. C -- Spec #: [id number] Recd: 06/02/05-1048 Status: [facility] Re #: [id number] SpType: CYTOLOGY Sub Dr: Shandra Hinton RN. DEBURRER. CNM. ADEQUACY OF SPECIMEN Satisfactory for evaluation * Transformation zone component identified * DIAGNOSIS NEGATIVE FOR INTRAEPITHELIAL LESION OR MALIGNANCY * CYTOLOGY HISTORY CAUTERY? NO HORMONES? (name YES INTRAUTERINE DEVICE? NO LESION VISIBLE? NO RADIATION? (date NO INFECTIOUS SPECIMEN? NO SOURCE ECTOCERVICAL/ENDOCERVICAL Thin Prep with Reflex HPV Test The Pap Smear is a screening test designed to aid in the detection of premalign ant and malignant conditions of the uterine cervix. It is not a diagnostic procedure an d should not be used as the sole means of detecting cervical cancer. Both false-positive and false-negative reports do occur. Depending on your risk status, a Pap smear moreno uld be obtained and evaluated every one to three years. PATIENT INFORMATION ACTUAL COLLECTION DATE: 05/31/05 ? NO POST MENOPAUSAL? No HYSTERECTOMY? No PREVIOUS ABNORMAL PAP SMEARS No DATE OF PRIOR SPECIMEN: 05/06/02 PREVIOUS CYTOLOGY/SURGICAL SPECIMEN #: [id number] -- Signed Jenna BARDALES CT(ASCP) 06/06/05 -- END OF REPORT 2 [POSITIVE FOR GRP B BETA STREP] POSITIVE FOR GRP B BETA STREP 3 FINAL: NO GROWTH DAY 2 4 Classification: Desirable . 5 CALCULATED LDL APPROXIMATES THE VALUE OF A DIRECT LDL MEASUREMENT. Classification: Near or above optimal . Procedures Date CPT Code Description Status 07/07/2017 29224 Laparoscopy W/Wo Transection W/Fulguration Of Oviducts Completed 10/12/2006 71438 Remove Intrauterine Device Completed 04/14/2006 92448 Insert Intrauterine Device Completed 12/15/2004 27288 Care Only Completed 10/23/2004 83738 Delivery Only Completed 10/23/2004 47709 Delivery Routine Completed 10/22/2004 97799 Care Completed 10/20/2004 46193 Non-Stress Test Completed 10/19/2004 54189 Care Completed 10/15/2004 75442 Care Completed 10/08/2004 18200 Care Completed 10/03/2004 85873 Non-Stress Test Completed 09/30/2004 81992 Care Completed 09/22/2004 63647 Care Completed 09/08/2004 23950 Care Completed 08/30/2004 76738 Care Completed 08/24/2004 62146 Care Completed 08/10/2004 97073 Antepartum Care 7 Or More Visits Completed 07/01/2004 93025 Care Completed 06/17/2004 89723 Care Completed 05/19/2004 79350 Care Completed 04/22/2004 16515 Care Completed 04/12/2004 12366 Injection Subcutaneous Or Intramuscular Completed 03/30/2004 54951 Care Completed 11/04/2002 96279 Echography Transvaginal Completed Encounters Type Date Location Provider CPT E/M Dx Office Visit 08/16/2017 10:30a [place] [address] Z48.816 Office Visit 06/14/2017 10:00a [place] [address] Z01.818 Office Visit 08/15/2016 9:00a [place] [address] Z30.09 Office Visit 01/21/2013 11:00a [place] [address] V25.41 626.6 783.1 V25.9 Office Visit 05/23/2006 3:20p [facility] CHARLETTE Art 53603 V25.42 Office Visit 04/14/2006 3:20p [facility] Sharmila Han JR., M.D. 99538 V25.41 v72.40 V25.49 V25.1 V25.42 V72.41 Office Visit 03/28/2006 2:00p [facility] Sharmila Han JR., M.D. 28971 V25.49 V25.02 Office Visit 05/31/2005 3:20p [facility] Shandra Oronamayela [facility] 76578 V76.2 V72.31 Office Visit 10/12/2004 3:00p [facility] Shandra Hinton [facility] 25555 782.1 Office Visit 08/11/2004 2:15p [facility] Brooke HuiNugent, [facility] 29923 789.9 Office Visit 01/09/2003 1:00p [facility] Office Jaswinder Gómez M.D. 80809 625.9 Plan of Care 07/14/2017 - Ny Lyles, [id number] Encntr for f/u exam aft trtmt for cond oth than malig neoplmComments:Reviewed precautions/when to seek urgent evaluation. To schedule post-op check with Dr. Flowers
[2017-09-02] MEDS ORDERED: Benzonatate CAP* 100 MG PO ONE (17:52)
[2017-09-02] MEDS ORDERED: predniSONE TAB* 20 MG PO ONE (17:52)
--- NOTE | 2017-09-02 17:54 | ED ---
Respiratory - HPI Summary HPI Summary: 37-year-old female presents with chest congestion for the past couple days. She states started postnasal drip and sinus congestion. She admits to ear pressure. She notes occasional headache. She denies any nausea vomiting. She denies any belly pain. She states gets this whenever her allergies coming to season. She takes allergy medication. She has not tried anything else. She admits occasional sore throat. She denies any difficulty swallowing. She denies any shortness of breath. She denies any history asthma or COPD. She states she is not coughing anything up. She denies any palpitations. She denies any chest pain. she denies any fevers. - History of Current Complaint Chief Complaint: EDUpperRespComplaint Stated Complaint: UPPER RESPIRATORY ISSUE Time Seen by Provider: 09/02/17 17:38 Pain Intensity: 0 - Allergy/Home Medications Allergies/Adverse Reactions: Allergies Allergy/AdvReac Type Severity Reaction Status Date / Time Adhesive Tape Allergy BLISTERS, Verified 09/02/17 15:39 WELT azithromycin [From Zithromax] Allergy Hives Verified 09/02/17 15:39 iodine Allergy RED RASH, Verified 09/02/17 15:39 BLISTERS latex Allergy Hives Verified 09/02/17 15:39 Penicillins Allergy Hives Verified 09/02/17 15:39 PMH/Surg Hx/FS Hx/Imm Hx Endocrine/Hematology History: Denies: Hx Anticoagulant Therapy, Hx Diabetes, Hx Thyroid Disease Cardiovascular History: Denies: Hx Congestive Heart Failure, Hx Deep Vein Thrombosis, Hx Hypertension , Hx Myocardial Infarction, Hx Pacemaker/ICD Respiratory History: Denies: Hx Asthma, Hx Chronic Obstructive Pulmonary Disease (COPD), Hx Lung Cancer, Hx Pneumonia, Hx Pulmonary Embolism GI History: Reports: Hx Gastroesophageal Reflux Disease - PRN MEDICATION FOR Denies: Hx Gall Bladder Disease, Hx Gastrointestinal Bleed, Hx Ulcer, Hx Urosepsis History: Denies: Hx Kidney Stones, Hx Renal Disease Musculoskeletal History: Reports: Hx Arthritis - KNEES, BACK, Other Musculoskeletal History - PINCHED NERVE IN NECK PER PATIENT Sensory History: Denies: Hx Contacts or Glasses, Hx Hearing Aid Opthamlomology History: Denies: Hx Contacts or Glasses Neurological History: Denies: Hx Dementia, Hx Migraine, Hx Seizures, Hx Transient Ischemic Attacks (TIA) Psychiatric History: Reports: Hx Anxiety - ON MEDICATION FOR, Hx Depression - ON MEDICATION FOR, Hx Panic Disorder - PANIC ATTACKS Denies: Hx Schizophrenia, Hx Bipolar Disorder - Surgical History Surgery Procedure, Year, and Place: 2004 AND 2007 , 2011 HERNIA REPAIR Hx Anesthesia Reactions: Yes - 2007-SPINAL HEADACHE-REQUIRING BLOOD PATCH PER PATIENT Infectious Disease History: No Infectious Disease History: Denies: Hx Clostridium Difficile, Hx Hepatitis, Hx Human Immunodeficiency Virus (HIV), Hx of Known/Suspected MRSA, Hx Shingles, Hx Tuberculosis, Hx Known/ Suspected VRE, Hx Known/Suspected VRSA, History Other Infectious Disease, Traveled Outside the [place] in Last 30 Days - Family History Known Family History: Positive: Cardiac Disease, Hypertension - Social History Alcohol Use: Weekly Alcohol Amount: 1-2 PER WEEK Hx Substance Use: No Substance Use Type: Reports: None Hx Tobacco Use: Yes Smoking Status (MU): Heavy Every Day Tobacco Smoker Amount Used/How Often: 1/2 PPD X 10-15 YEARS Have You Smoked in the Last Year: Yes Review of Systems Negative: Fever Positive: Nasal Discharge Negative: Chest Pain Positive: Cough. Negative: Shortness Of Breath Negative: Abdominal Pain All Other Systems Reviewed And Are Negative: Yes Physical Exam Triage Information Reviewed: Yes Vital Signs On Initial Exam: Initial Vitals Temp Pulse Resp BP Pulse Ox 97.1 F 95 18 133/73 98 09/02/17 15:38 09/02/17 15:38 09/02/17 15:38 09/02/17 15:38 09/02/17 15:38 Vital Signs Reviewed: Yes Appearance: Positive: Well-Appearing Skin: Positive: Warm, Dry Head/Face: Positive: Normal Head/Face Inspection Eyes: Positive: Normal, EOMI, DEANNA, Conjunctiva Clear ENT: Positive: Pharynx normal - cobblestoning, Nasal drainage, TMs normal, Uvula midline, Other - soft palate symmetric. Negative: Tonsillar swelling, Tonsillar exudate, Trismus, Muffled voice Neck: Positive: Supple, Nontender, No Lymphadenopathy Respiratory/Lung Sounds: Positive: Clear to Auscultation, Breath Sounds Present Cardiovascular: Positive: Normal, RRR Abdomen Description: Positive: Nontender, Soft Bowel Sounds: Positive: Present Musculoskeletal: Positive: Normal Neurological: Positive: Normal Psychiatric: Positive: Normal Diagnostics - Vital Signs Vital Signs Temp Pulse Resp BP Pulse Ox 09/02/17 15:38 97.1 F 95 18 133/73 98 - Laboratory Lab Statement: Any lab studies that have been ordered have been reviewed, and results considered in the medical decision making process. Disposition - Course Course Of Treatment: 37-year-old female presents with chest congestion for the past couple days. She states started postnasal drip and sinus congestion. She admits to ear pressure. She notes occasional headache. She denies any nausea vomiting. She denies any belly pain. She states gets this whenever her allergies coming to season. She takes allergy medication. She has not tried anything else. She admits occasional sore throat. She denies any difficulty swallowing. She denies any shortness of breath. She denies any history asthma or COPD. She states she is not coughing anything up. She denies any palpitations. She denies any chest pain. On exam sinus discharge present. Cobblestoning of throat. Uvula midline. Soft palate symmetric. Lungs clear to auscultation. Patient declined chest x-ray. Offered medication for symptomatic relief and patient decided on prednisone and Tessalon. Patient understands agrees the plan. - Differential Dx - Cardiopulmonary Differential Diagnoses - Cardiopulmonary: Bronchitis, Lower Resp Infection, Sinusitis - Diagnoses Provider Diagnoses: Upper respiratory infection Discharge - Sign-Out/Discharge Documenting (check all that apply): Discharge/Admit/Transfer - Discharge Plan Condition: Good Disposition: HOME Prescriptions: Benzonatate CAP* [Tessalon 100 MG CAP*] 100 mg PO TID PRN #21 cap PRN Reason: Cough predniSONE TAB* [Deltasone 20 MG TAB*] 40 mg PO DAILY #8 tab Patient Education Materials: Upper Respiratory Infection (ED) Referrals: Adiel Blood MD [Primary Care Provider] - Additional Instructions: Use Tessalon three times a day for cough Take steroid once a day for 4 more days Use saline in the nose Follow up with primary care physician in 5 days Return to ED if develop any new or worsening symptoms - Billing Disposition and Condition Condition: GOOD Disposition: Home
[2017-09-02 18:26] VITALS: BP 115/65
== END 2017-09-02 18:25 | disposition home or self-care (01) ==
LOC: ED 15:34
DX: J06.9 Acute upper respiratory infection, unspecified (principal); F41.9 Anxiety disorder, unspecified; K21.9 Gastro-esophageal reflux disease without esophagitis; F32.9 Major depressive disorder, single episode, unspecified; F17.210 Nicotine dependence, cigarettes, uncomplicated; Z88.0 Allergy status to penicillin
CPT/HCPCS: 99282; A9270-GY; J7512

== ENCOUNTER 2019-03-22 08:02 | Day surgery (SDC) | payer OTHER ==
[~2019-03-22 08:02] MED LIST changes: -Buffered Lidocaine 0.9% SYRIN* 5 ML/SYR SYRINGE INTRADERM ONE; +Buffered Lidocaine 1% SYRIN* 1 ML/SYRINGE INTRADERM ONE; -Dexamethasone IV* 4 MG/ML 1 ML (4 MG) IV SLOW PU ONE; +Famotidine IV* 10 MG/ML 2 ML (20 mg) IV ONE; +Lactated Ringers 1000 ML Bag* 1,000 ML IV SCH; -Lidocaine 2% PF * 5 ML VIAL ONE; -Midazolam* 1 MG/ML 2 ML VIAL (2 MG) ONE; -Propofol* 10 MG/ML 20 ML BTL IV PUSH ONE; -Rocuronium* 10 MG/ML VIAL ONE; -Sodium Citrate/Citric Acid* 15 ML UDC PO ONE; -fentaNYL* 50 MCG/ML 2 ML VIAL (100 MCG VIAL) ONE
[2019-03-22] MEDS ORDERED: Dexamethasone IV* 4 MG/ML 1 ML (4 MG) ONE (10:45)
[2019-03-22] MEDS ORDERED: Propofol* 10 MG/ML 20 ML BTL ONE (10:45)
[2019-03-22] MEDS ORDERED: Ondansetron INJ* 2 MG/ML VIAL ONE (10:45)
[2019-03-22] MEDS ORDERED: fentaNYL* 50 MCG/ML 2 ML VIAL (100 MCG VIAL) ONE (10:45)
[2019-03-22] MEDS ORDERED: Lidocaine 2% PF * 5 ML VIAL ONE (10:45)
[2019-03-22] MEDS ORDERED: Midazolam* 1 MG/ML 5 ML VIAL (5 MG) ONE (10:45)
[2019-03-22] MEDS ORDERED: Ketorolac INJ* 30 MG/ML 1 ML VIAL ONE ×2 (10:45→12:16)
[2019-03-22] MEDS ORDERED: Famotidine IV* 10 MG/ML 2 ML (20 mg) ONE (11:00)
[2019-03-22] MEDS ORDERED: Naloxone* 0.4 MG/ML 1 ML VIAL IV PRN (11:40)
[2019-03-22] MEDS ORDERED: fentaNYL* 50 MCG/ML 2 ML VIAL (100 MCG VIAL) IV PRN (11:40)
[2019-03-22] MEDS ORDERED: Ondansetron INJ* 2 MG/ML VIAL IV PRN (11:40)
[2019-03-22] MEDS ORDERED: oxyCODONE/Acetamin 5/325 MG* TAB PO PRN (12:41)
[2019-03-22] MEDS ORDERED: Ibuprofen TAB* 600 MG PO PRN (12:41)
[2019-03-22 13:50] VITALS: BP 122/82
--- NOTE | 2019-03-23 00:24 | OP ---
CC: [facility]* OPERATIVE REPORT: DATE OF OPERATION: 03/22/19 - [facility] DATE OF : 84 SURGEON: Alexandr Chauhan MD ANESTHESIOLOGIST: Dr. Claudio ANESTHESIA: General endotracheal anesthesia. PRE-OP DIAGNOSIS: Menorrhagia, dysmenorrhea. POST-OP DIAGNOSIS: Menorrhagia, dysmenorrhea. OPERATIVE PROCEDURE: Dilation, hysteroscopy, curettage and NovaSure ablation. ESTIMATED BLOOD LOSS: Minimal, less than 20 cc. FINDINGS: Midline retroverted uterus. The uterus sounds to 9.5. The cervix was 5 cm, so the cavity length was 4.5. The cavity width was 4.7, power 116, time 1 minute 33 seconds. COMPLICATIONS: None. COUNTS: Sponge count correct x2. CONDITION: The patient was brought to the operating room awake and in stable condition. DESCRIPTION OF PROCEDURE: The patient was brought to the operating room. When general anesthesia was found to be adequate, the patient was prepped and draped in the usual sterile fashion. No BETADINE prep was used due the patient's allergy and no adhesives were used due to the allergy. Urine test was confirmed to be negative prior to the OR. The weighted speculum exam under anesthesia was performed. Weighted speculum was placed in the vagina. Anterior lip of the cervix was grasped with a single-tooth tenaculum and the cervix was gently and easily dilated with graduated De dilators. The hysteroscope was introduced with the above findings noted. No endometrial polyps were seen. No intracavitary fibroids were seen. A curettage was performed. Endometrial curettings were sent to Pathology. The NovaSure was introduced and seeded. The test was performed and passed and then the NovaSure was enabled. The NovaSure time was 1 minute 33 seconds. The NovaSure was then removed. The hysteroscope was reintroduced and a good ablation was noted throughout. The hysteroscope was removed. Hemostasis was achieved down the anterior lip of the cervix after the single-tooth tenaculum was removed with application of the polyp forceps. Excellent hemostasis was assured. All instruments removed from the vagina and the patient was brought to recovery room , awake and in stable condition. [id number]/[facility] #: [id number] [facility]ITAL[facility]imi
== END 2019-03-22 13:54 | disposition home or self-care (01) ==
LOC: OR 08:02
PROVIDERS: ATTEND Obstetrics & Gynecology
DX: N92.0 Excessive and frequent menstruation with regular cycle (principal); N94.6 Dysmenorrhea, unspecified; R00.2 Palpitations; K21.9 Gastro-esophageal reflux disease without esophagitis; F41.8 Other specified anxiety disorders; Z88.0 Allergy status to penicillin; D25.9 Leiomyoma of uterus, unspecified; F17.210 Nicotine dependence, cigarettes, uncomplicated
CPT/HCPCS: 81025; 88305; J1100; J1885; J2250; J2405; J2704; J3010